=== PATIENT | female | born 1955 | race Caucasian/White ===

== ENCOUNTER 2017-09-25 05:48 | Day surgery (SDC) | payer OTHER ==
[2017-09-25] MEDS ORDERED: Versed 2 MG/2 ML Injection IV ONE (05:49)
[2017-09-25] MEDS ORDERED: DIPRIVAN 200 MG/20 ML IV ONE ×2 (05:49)
[2017-09-25] MEDS ORDERED: Lactated Ringers 1,000 ML IV SCH (06:30)
[2017-09-25] MEDS ORDERED: Xopenex 1.25 MG/0.5 ML UD NEBULE IH STA (06:35)
[2017-09-25] MEDS ORDERED: Sodium Chloride 3 ML UD NEBULES IH ONE ×2 (06:39→06:42)
--- NOTE | 2017-09-25 08:34 | OP ---
SURGERY DATE/TIME: 09/25/2017 0658 PREOPERATIVE DIAGNOSIS: Screening colonoscopy. POSTOPERATIVE DIAGNOSIS: Normal colon. PROCEDURE: Colonoscopy. SURGEON: Garret Lynn M.D. ANESTHESIA: MAC by Oswald Melendrez CRNA. ESTIMATED BLOOD LOSS: None. SPECIMENS: None. DESCRIPTION OF PROCEDURE: After informed written consent was obtained, the patient was taken to the endoscopy suite. She underwent monitored anesthesia and digital rectal exam showed normal sphincter tone and no internal lesions. The scope was inserted into the rectum and sequentially the entire colonic mucosa was traversed. The level of cecum was reached and verified with direct visualization of ileocecal valve. Upon withdrawal careful mucosal inspection revealed no obvious abnormalities. Prep was noted to be fair although there were areas with liquid stool present throughout the entire length of the colon. No obvious mucosal abnormalities were encountered during the exam. Prior to withdrawal retroflexion was performed and showed no internal lesions and no other abnormalities. The scope was removed and the patient was transferred to the recovery room in excellent condition.
[2017-09-25 08:53] VITALS: BP 136/69; PULSE 78; O2SAT 94
== END 2017-09-25 08:45 | disposition home or self-care (01) ==
LOC: SDC 05:48
PROVIDERS: ATTEND Family Medicine
PROC: 0DJD8ZZ Inspection of Lower Intestinal Tract, Via Natural or Artificial Opening Endoscopic (ICD-10-PCS; principal; 2017-09-25)
DX: Z12.11 Encounter for screening for malignant neoplasm of colon (principal); I25.10 Atherosclerotic heart disease of native coronary artery without angina pectoris; E03.9 Hypothyroidism, unspecified
CPT/HCPCS: 00810; 94640; J2250; J2704; A9270-GY

== ENCOUNTER 2023-10-30 14:50 | Inpatient (IN) | payer MEDICARE ==
--- NOTE | 2023-10-30 14:53 | ERPHSYRPT ---
- History of Present Illness Time Seen by Provider: 10/30/23 14:52 Source: patient Exam Limitations: no limitations Physician History: This is a 68-year-old white female patient of nurse practitioner Get who presents to the emergency department from [facility] with worsening shortness of breath over the last 3 to 4 days. She has associated cough that is nonproducti ve. She has wheezing and hoarseness present. Patient denies chest pain. Patient denies abdominal pain. She has no nausea vomiting or diarrhea symptoms. Patient arrived to the emergency department with a room air oxygen saturation level of 85%. Patient was placed on 2 L oxygen via nasal cannula and increased to 97%. Patient is a former smoker of cigarettes quitting approximately 3 years ago. Patient has a history of gastroesophageal reflux disease, hypertension, hypothyroidism, COPD (no O2 use) coronary artery disease. Patient does use nebulizer treatments at home. Timing/Duration: day(s) (3 to 4 days), worse Cough Quality/Degree: mild (To moderate), dry cough (Nonproductive) Possible Cause: occasional episodes Modifying Factors: Improves With: coughing, oxygen (Improved) Associated Symptoms: cough, shortness of breath, wheezing, No fever, No chills, No chest pain/soreness Allergies/Adverse Reactions: propoxyphene napsylate [From Darvocet-N 100] Allergy (Mild, Verified 10/30/23 15:04) Home Medications: Albuterol Sulfate Mdi [ALBUTEROL/Proair Hfa MDI] 2 puff PO BID PRN 10/30/23 [History] Aspirin EC 81 mg [Ecotrin 81 mg] 1 tab PO DAILY 10/30/23 [History] Atorvastatin Calcium [Lipitor 40Mg] 1 tab PO DAILY 10/30/23 [History] Carvedilol 12.5 mg [Coreg 12.5 mg] 1 tab PO BID 10/30/23 [History] Evolocumab [Repatha Sureclick] 140 mg SQ 14 10/30/23 [History] Fluticasone/Vilanterol [Breo Ellipta 100-25 Mcg Inhalr] 1 puff PO DAILY 10/30/23 [History] Gabapentin [Neurontin ] 1 cap PO BID 10/30/23 [History] Levothyroxine Sodium 75 Mcg [Synthroid 75 Mcg] 1 tab PO DAILY 10/30/23 [History] NIFEdipine [Nifedipine ER] 1 tab PO DAILY 10/30/23 [History] Hx Tetanus, Diphtheria Vaccination/Date Given: Yes Hx Influenza Vaccination/Date Given: Yes Hx Pneumococcal Vaccination/Date Given: Yes Travel Risk - International Travel Have you traveled outside of the country in past 3 weeks: No - Coronavirus Screening Are you exhibiting any of the following symptoms?: Yes Symptoms: Cough: New Onset, Shortness of Breath Close contact with a COVID-19 positive Pt in past 14-21 Days: No - Review of Systems Constitutional: No Symptoms Eyes: No Symptoms Ears, Nose, & Throat: No Symptoms Respiratory: Cough, Dyspnea, Wheezing Cardiac: No Symptoms Abdominal/Gastrointestinal: No Symptoms Genitourinary Symptoms: No Symptoms Musculoskeletal: No Symptoms Skin: No Symptoms Neurological: No Symptoms Psychological: No Symptoms Endocrine: No Symptoms Hematologic/Lymphatic: No Symptoms Immunological/Allergic: No Symptoms All Other Systems: Reviewed and Negative - Past Medical History Pertinent Past Medical History: Yes Neurological History: No Pertinent History ENT History: No Pertinent History Cardiac History: Aneurysm, Hypertension, Myocardial Infarction ([place]) Respiratory History: COPD Endocrine Medical History: No Pertinent History Musculoskeletal History: No Pertinent History GI Medical History: GERD, Hemorrhoids History: No Pertinent History Psycho-Social History: No Pertinent History Female Reproductive Disorders: No Pertinent History Other Medical History: [place] X2 - Past Surgical History Past Surgical History: Yes Neuro Surgical History: No Pertinent History Cardiac: Cardiac Catheterization Respiratory: No Pertinent History Gastrointestinal: No Pertinent History Genitourinary: No Pertinent History Musculoskeletal: No Pertinent History Female Surgical History: Hysterectomy Other Surgical History: diagnotic lap x2 - Social History Smoking Status: Former smoker Exposure to second hand smoke: Yes Alcohol Use: None Drug Use: none Patient Lives Alone: No Significant Family History: no pertinent family hx - Nursing Vital Signs Nursing Vital Signs: Initial Vital Signs Temperature 98.7 F 10/30/23 14:51 Pulse Rate 88 10/30/23 14:51 Respiratory Rate 18 10/30/23 14:51 Blood Pressure 150/73 10/30/23 14:51 O2 Sat by Pulse Oximetry 85 L 10/30/23 14:51 Pain Scale Pain Intensity 0 - Physical Exam General Appearance: no apparent distress, alert, anxiety, thin Eye Exam: PERRL/EOMI, eyes nml inspection Ears, Nose, Throat Exam: normal ENT inspection, moist mucous membranes Neck Exam: normal inspection, non-tender, supple, full range of motion Respiratory Exam: respiratory distress, airway intact, crackles/rales (Bilateral bases), wheezing, No chest tenderness Cardiovascular Exam: regular rate/rhythm, normal heart sounds, normal peripheral pulses Gastrointestinal/Abdomen Exam: soft, normal bowel sounds, No tenderness Pelvic Exam: not done Rectal Exam: not done Back Exam: normal inspection, normal range of motion, No CVA tenderness, No vertebral tenderness Extremity Exam: normal inspection, normal range of motion, pelvis stable Neurologic Exam: alert, oriented x 3, cooperative, 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, normal mood/affect, nml cerebellar function, nml station & gait, sensation nml Skin Exam: normal color, warm, dry Lymphatic Exam: adenopathy SpO2 Interpretation: normal O2 Delivery: Room Air - Course Nursing assessment & vital signs reviewed: Yes EKG Interpreted by Me: RATE (77), Sinus Rhythm, NORMAL AXIS, NORMAL INTERVALS, Other (No acute ischemic changes on today's twelve-lead EKG.) Ordered Tests: Active Orders 24 hr Category Date Time Status EKG-ER Only STAT Care 10/30/23 15:39 Active IV Insertion STAT Care 10/30/23 15:39 Active Pulse Oximetry (ED) STAT Care 10/30/23 15:39 Active CHEST 1 VIEW (PORTABLE) Stat Exams 10/30/23 15:39 Completed BLOOD CULTURE Stat Lab 10/30/23 16:00 Received CBC W DIFF Stat Lab 10/30/23 15:10 Completed CMP Stat Lab 10/30/23 15:10 Completed MAGNESIUM Stat Lab 10/30/23 15:10 Completed NT PRO BNPII Stat Lab 10/30/23 15:10 Completed PROTIME WITH INR Stat Lab 10/30/23 16:40 Completed Sodium, Urine Stat Lab 10/30/23 Ordered TROPONIN Q4H Lab 10/30/23 15:10 Completed TROPONIN Q4H Lab 10/30/23 19:45 Ordered TROPONIN Q4H Lab 10/30/23 23:45 Ordered Respiratory Therapy Assessment DAILY RT 10/30/23 15:07 Active Medication Summary Generic Name Dose Route Start Last Admin Trade Name Freq PRN Reason Stop Dose Admin Sodium Chloride 1,000 mls @ 50 mls/hr 10/30/23 15:45 10/30/23 15:54 Sodium Chloride 0.9% 1000 Ml IV 11/29/23 15:44 50 mls/hr .Q20H ROMULO Administration Discontinued Medications Generic Name Dose Route Start Last Admin Trade Name Malena PRN Reason Stop Dose Admin Hydrocodone Bitart/Acetaminophen 10 ml 10/30/23 16:43 10/30/23 16:47 Hydrocodone/Acetaminophen 5 Ml Udcup PO 10/30/23 16:44 10 ml STAT STA Administration Hydrocodone Bitart/Acetaminophen Confirm 10/30/23 16:46 Hydrocodone/Acetaminophen 5 Ml Udcup Administered 10/30/23 16:47 Dose 10 ml .ROUTE .STK-MED ONE Albuterol/Ipratropium 3 ml 10/30/23 15:04 10/30/23 15:04 Ipratropium/Albuterol Sulfate 3 Ml Ampul.Neb IH 10/30/23 15:05 3 ml STAT ONE Administration Albuterol/Ipratropium Confirm 10/30/23 15:02 Ipratropium/Albuterol Sulfate 3 Ml Ampul.Neb Administered 10/30/23 15:03 Dose 3 ml IH .STK-MED ONE Methylprednisolone Sodium 0 mg 10/30/23 15:39 10/30/23 15:54 Succinate 125 mg/ Sterile IV 10/30/23 15:40 125 mg Water 2 ml STAT ONE Administration Methylprednisolone Sodium Succinate Confirm 10/30/23 15:50 Methylprednis Sod Succ 125 Mg/2 Ml Vial Administered 10/30/23 15:51 Dose 125 mg .ROUTE .STK-MED ONE Sterile Water Confirm 10/30/23 15:50 Water For Injection,Sterile 10 Ml Vial Administered 10/30/23 15:51 Dose 10 ml IJ .STK-MED ONE Lab/Rad Data: Laboratory Result Diagrams 10/30/23 15:10 10/30/23 15:10 Laboratory Results 10/30/23 10/30/23 10/30/23 Range/Units 16:40 16:05 15:10 WBC (4.0-10.5) x10^3/uL RBC (4.1-5.4) x10^6/uL Hgb (12.0-16.0) g/dL Hct (35-47) % MCV (78-100) fL MCH (26-32) pg MCHC (32-36) g/dL RDW (11.5-14.0) % Plt Count (150-450) x10^3/uL MPV (7.5-11.0) fL Gran % (36.0-66.0) % Immature Gran % (Auto) (0.00-0.4) % Nucleat RBC Rel Count (0.00-0.1) % Eos # (Auto) (0-0.5) x10^3/uL Immature Gran # (Auto) (0.00-0.03) x10^3u/L Absolute Lymphs (auto) (1.0-4.6) x10^3/uL Absolute Monos (auto) (0.0-1.3) x10^3/uL Absolute Nucleated RBC (0.00-0.01) x10^3u/L Lymphocytes % (24.0-44.0) % Monocytes % (0.0-12.0) % Eosinophils % (0.00-5.0) % Basophils % (0.0-0.4) % Absolute Granulocytes (1.4-6.9) x10^3/uL Basophils # (0-0.4) x10^3/uL PT 10.5 (9.4-12.5) SECONDS INR 0.96 (0.8-3.0) Sodium (137-145) mmol/L Potassium (3.5-5.1) mmol/L Chloride (98-107) mmol/L Carbon Dioxide (22-30) mmol/L Anion Gap (5-15) MEQ/L BUN (7-17) mg/dL Creatinine (0.52-1.04) mg/dL Estimated GFR ML/MIN Glucose (74-106) mg/dL Calcium (8.4-10.2) mg/dL Magnesium (1.6-2.3) mg/dL Total Bilirubin (0.2-1.3) mg/dL AST (14-36) U/L ALT (0-35) U/L Alkaline Phosphatase (38-126) U/L Troponin I 0.012 (0.000-0.034) ng/mL NT-Pro-B Natriuret Pep (<300) pg/mL Serum Total Protein (6.3-8.2) g/dL Albumin (3.5-5.0) g/dL Influenza Type A Ag POSITIVE (NEGATIVE) Influenza Type B Ag NEGATIVE (NEGATIVE) RSV (PCR) NEGATIVE (NEGATIVE) SARS-CoV-2 (PCR) NEGATIVE (NEGATIVE) 10/30/23 10/30/23 Range/Units 15:10 15:10 WBC 5.4 (4.0-10.5) x10^3/uL RBC 4.42 (4.1-5.4) x10^6/uL Hgb 13.3 (12.0-16.0) g/dL Hct 37.6 (35-47) % MCV 85.1 (78-100) fL MCH 30.1 (26-32) pg MCHC 35.4 (32-36) g/dL RDW 12.9 (11.5-14.0) % Plt Count 209 (150-450) x10^3/uL MPV 10.7 (7.5-11.0) fL Gran % 74.2 H (36.0-66.0) % Immature Gran % (Auto) 0.2 (0.00-0.4) % Nucleat RBC Rel Count 0.0 (0.00-0.1) % Eos # (Auto) 0 (0-0.5) x10^3/uL Immature Gran # (Auto) 0.01 (0.00-0.03) x10^3u/L Absolute Lymphs (auto) 0.82 L (1.0-4.6) x10^3/uL Absolute Monos (auto) 0.54 (0.0-1.3) x10^3/uL Absolute Nucleated RBC 0.00 (0.00-0.01) x10^3u/L Lymphocytes % 15.2 L (24.0-44.0) % Monocytes % 10.0 (0.0-12.0) % Eosinophils % 0.0 (0.00-5.0) % Basophils % 0.4 (0.0-0.4) % Absolute Granulocytes 4.01 (1.4-6.9) x10^3/uL Basophils # 0.02 (0-0.4) x10^3/uL PT (9.4-12.5) SECONDS INR (0.8-3.0) Sodium 118 L* (137-145) mmol/L Potassium 3.8 (3.5-5.1) mmol/L Chloride 83 L (98-107) mmol/L Carbon Dioxide 24 (22-30) mmol/L Anion Gap 15.0 (5-15) MEQ/L BUN 8 (7-17) mg/dL Creatinine 0.33 L (0.52-1.04) mg/dL Estimated GFR 111.5 ML/MIN Glucose 108 H (74-106) mg/dL Calcium 8.5 (8.4-10.2) mg/dL Magnesium 2.0 (1.6-2.3) mg/dL Total Bilirubin 0.80 (0.2-1.3) mg/dL AST 52 H (14-36) U/L ALT 20 (0-35) U/L Alkaline Phosphatase 65 (38-126) U/L Troponin I (0.000-0.034) ng/mL NT-Pro-B Natriuret Pep 571 (<300) pg/mL Serum Total Protein 7.3 (6.3-8.2) g/dL Albumin 4.2 (3.5-5.0) g/dL Influenza Type A Ag (NEGATIVE) Influenza Type B Ag (NEGATIVE) RSV (PCR) (NEGATIVE) SARS-CoV-2 (PCR) (NEGATIVE) - Progress Progress: improved, re-examined Air Movement: fair Progress Note: 10/30/23 15:49 This patient's medical issue is 1 of moderate to high complexity. Level complex in the workup performed is based on review of the patient's past medical history, review the patient's medication list, review of patient's drug allergy list, history present illness and physical findings on examination. The workup in this patient includes placement of an intravenous line, twelve-lead EKG, respiratory therapy consultation with nebulizer treatment with DuoNeb, troponin level, BNP, chest x-ray, CBC, CMP, viral swabs, mono test. We will also provide the patient with Solu-Medrol 125 mg intravenously. 10/30/23 17:22 I reviewed and interpreted the patient's workup results. Patient has hyponatremia. She also is positive for influenza A infection. Chest x-ray shows continued nonacute hyperinflated chest with chronic features. 10/30/23 18:21 I reviewed the patient history, presenting complaint, workup performed and the results of the radiographic and laboratory studies with Dr. Marshall, the telehospitalist on-call. She accepts the patient for admission. Blood Culture(s) Obtained: Yes Counseled pt/family regarding: lab results, diagnosis, rad results Medical Desision Making - Independent Historian Additional History obtained from: Family - Discussion of managment Care discussed with:: hospitalist Reviewed:: Test results, Need for additional workup - Diagnostic Testing Diagnostic test were ordered, analyzed, and reviewed by me: Yes Radiological Interpretation: Reviewed by me, Teleradiologist Report - Risk of complications The pt has a high risk of morbidity or mortality based on: Decision regarding hospitilization or escalation of hosp level of care - Departure Departure Disposition: In-patient Admission Clinical Impression: Hyponatremia, Influenza A H1N1 infection, Hypoxia, Weakness Condition: Fair Critical Care Time: No Referrals: NEL COWART, PRINTED CIRCUIT DESIGNER [Primary Care Provider] - Follow up/PCP as directed
[2023-10-30] MEDS ORDERED: DUONEB 0.5-3 MG/3 ml Neb IH ONE ×3 (15:02→21:32)
[2023-10-30] MEDS ORDERED: solu-MEDROL 125 MG, Sterile H2O 10 ml 2 ML IV ONE ×2 (15:39)
[2023-10-30] MEDS ORDERED: Sodium Chloride 0.9% 1000 ML 1,000 ML IV SCH (15:45)
[2023-10-30] MEDS ORDERED: Sodium Chloride 0.9% 1000 ML 1,000 ML ONE (15:50)
[2023-10-30] MEDS ORDERED: solu-MEDROL ONE ×2 (15:50→22:12)
[2023-10-30] MEDS ORDERED: Sterile H2O 10 ml IJ ONE (15:50)
--- NOTE | 2023-10-30 15:55 | XRAY ---
Indication: Cough and short of breath. Comparison: May 17, 2022. Portable apical lordotic chest again hyperinflated and clear again with a few incidental tiny calcified granulomas. Heart not enlarged again with CABG. Bony thorax intact again with osteopenia. Impression: Continued nonacute hyperinflated chest with chronic features.
[2023-10-30 16:21] LABS: Absolute Neutrophil Ct (ANC) 4.01 x10^3/uL (1.4-6.9); BASOPHIL % 0.4 % (0.0-0.4); Basophil (Absolute #) 0.02 x10^3/uL (0-0.4); Eosinophil (Absolute #) 0 x10^3/uL (0-0.5); Hematocrit 37.6 % (35-47); Hemoglobin 13.3 g/dL (12.0-16.0); IMMATURE GRAN # 0.01 x10^3u/L (0.00-0.03); IMMATURE GRAN % 0.2 % (0.00-0.4); Lymphocyte (Absolute #) 0.82 x10^3/uL (1.0-4.6); Lymphocytes % 15.2 % (24.0-44.0); Mean Cell Volume 85.1 fL (78-100); Mean Corpuscular Hemoglobin 30.1 pg (26-32); Mean Corpuscular Hgb Concent. 35.4 g/dL (32-36); Mean Platelet Volume 10.7 fL (7.5-11.0); Monocyte (Absolute #) 0.54 x10^3/uL (0.0-1.3); Neutrophil % 74.2 % (36.0-66.0); Platelet Count 209 x10^3/uL (150-450); Red Blood Count 4.42 x10^6/uL (4.1-5.4); Red Cell Distribution Width 12.9 % (11.5-14.0); White Blood Count 5.4 x10^3/uL (4.0-10.5)
[2023-10-30] MEDS ORDERED: HYDROCODONE-ACETAMIN 2.5-108/5 ML SOLUTION PO STA (16:43)
[2023-10-30] MEDS ORDERED: HYDROCODONE-ACETAMIN 2.5-108/5 ML SOLUTION ONE (16:46)
[2023-10-30 16:50] LABS: ALBUMIN 4.2 g/dL (3.5-5.0); BILIRUBIN,TOTAL 0.8 mg/dL (0.2-1.3); Calcium 8.5 mg/dL (8.4-10.2); Creatinine 1 0.33 mg/dL (0.52-1.04); EST GLOMERULAR FILTRATION RATE 111.5 ML/MIN; Potassium 3.8 mmol/L (3.5-5.1); Total Protein 7.3 g/dL (6.3-8.2)
[2023-10-30 17:14] LABS: INFLUENZA B NEGATIVE (NEGATIVE); RESPIRATORY SYNCTIAL VIRUS NEGATIVE (NEGATIVE); SARS-CoV-2 Xpert Express NEGATIVE (NEGATIVE)
[2023-10-30 17:19] LABS: INFLUENZA A POSITIVE (NEGATIVE)
[2023-10-30 17:20] LABS: INR 0.96 (0.8-3.0); PROTIME 10.5 SECONDS (9.4-12.5)
[2023-10-30] MEDS ORDERED: Zofran 4 MG/2 ML VIAL IV PRN (19:25)
[2023-10-30] MEDS ORDERED: TYLENOL 325 MG PO PRN (19:25)
[2023-10-30 20:00] LABS: POTASSIUM, URINE RANDOM 12.5 mmol/L (0.1-0.7)
--- NOTE | 2023-10-30 20:58 | PCM.HP ---
History of Present Illness - Chief Complaint Chief Complaint: hyponatremia, influenza A, hypoxia, weakness Date: 10/30/23 History of Present Illness: Ms. Yanes is a 68 year old female with a past medical history significant for hypertension, hyperlipidemia, and hypothyroidism who presents to the ER with complaints of vague shortness of breath associated with non productive cough over the past 3-4 days. Upon arrival, she was found to be positive for influenza and initial labs were notable for a sodium of 118. She was started on NS IVFs, given Solumedrol and admitted for further work up. She is currently resting in bed, awake/alert. Some nausea earlier but no vomiting or diarrhea. No dysuria, hematuria or foamy urine. - Review of Systems Eyes: No Symptoms Ears, Nose, & Throat: No Symptoms Respiratory: Cough, No Short Of Breath Cardiac: No Chest Pain Abdominal/Gastrointestinal: Nausea, No Vomiting, No Diarrhea Genitourinary Symptoms: No Dysuria, No Frequency, No Hematuria Musculoskeletal: No Symptoms Skin: No Symptoms Neurological: No Symptoms Psychological: No Symptoms Endocrine: No Symptoms Hematologic/Lymphatic: No Symptoms Medications & Allergies Home Medications: Home Medication List Albuterol Sulfate Mdi [ALBUTEROL/Proair Hfa MDI] 2 puff PO BID PRN 10/30/23 [History Confirmed 10/30/23] Aspirin EC 81 mg [Ecotrin 81 mg] 1 tab PO DAILY 10/30/23 [History Confirmed 10/30/23] Atorvastatin Calcium [Lipitor 40Mg] 1 tab PO DAILY 10/30/23 [History Confirmed 10/30/23] Carvedilol 12.5 mg [Coreg 12.5 mg] 12.5 mg PO BID 10/30/23 [History Confirmed 10/30/23] Evolocumab [Repatha Sureclick] 140 mg SQ 14 10/30/23 [History Confirmed 10/30/23] Fluticasone/Vilanterol [Breo Ellipta 100-25 Mcg Inhalr] 1 puff PO DAILY 10/30/23 [History Confirmed 10/30/23] Gabapentin [Neurontin ] 1 cap PO BID 10/30/23 [History Confirmed 10/30/23] Levothyroxine Sodium 75 Mcg [Synthroid 75 Mcg] 1 tab PO DAILY 10/30/23 [History Confirmed 10/30/23] NIFEdipine [Nifedipine ER] 1 tab PO DAILY 10/30/23 [History Confirmed 10/30/23] Allergies/Adverse Reactions: Allergies Allergy/AdvReac Type Severity Reaction Status Date / Time propoxyphene napsylate Allergy Mild Verified 10/30/23 15:04 [From Darvocet-N 100] - Past Medical History Past Medical History: Yes Neurological History: No Pertinent History ENT History: No Pertinent History Cardiac History: Aneurysm, Hypertension, Myocardial Infarction ([place]) Respiratory History: COPD Endocrine Medical History: No Pertinent History Musculoskelatal History: No Pertinent History GI Medical History: GERD, Hemorrhoids History: No Pertinent History Pyscho-Social History: No Pertinent History Reproductive Disorders: No Pertinent History Comment: [place] X2 - Female History Are you now?: No - Past Surgical History Past Surgical History: Yes Neuro Surgical History: No Pertinent History Cardiac History: CABG, Cardiac Catheterization Respiratory Surgery: No Pertinent History GI Surgical History: No Pertinent History Genitourinary Surgical Hx: No Pertinent History Musculskeletal Surgical Hx: No Pertinent History Female Surgical History: Hysterectomy Other Surgical History: diagnostic lap x2 - Social History Smoking Status: Former smoker Exposure to second hand smoke: Yes Alcohol: None Drug Use: none Significant Family History: no pertinent family hx - Physical Exam Vital Signs: Vital Signs - 24 hr Temp Pulse Resp BP BP Pulse Ox 10/30/23 19:26 98.2 F 72 18 183/72 92 L 10/30/23 18:30 71 17 175/79 10/30/23 18:00 68 20 154/81 95 10/30/23 17:30 75 16 151/80 95 10/30/23 17:00 77 19 159/91 93 L 10/30/23 16:30 76 19 144/62 94 L 10/30/23 16:00 80 18 127/64 95 10/30/23 15:47 95 10/30/23 15:31 79 19 127/64 95 10/30/23 15:07 80 20 97 10/30/23 15:00 79 16 150/73 96 10/30/23 14:51 98.7 F 88 18 150/73 85 L General Appearance: no apparent distress Neurologic Exam: alert, oriented x 3 Ears, Nose, Throat Exam: dry mucous membranes Neck Exam: supple Respiratory Exam: No respiratory distress Cardiovascular Exam: regular rate/rhythm Gastrointestinal/Abdomen Exam: soft Extremity Exam: No pedal edema, No swelling, No tenderness Skin Exam: normal color, No rash Results - Labs Lab/Micro Results: Lab Results-Last 24 Hours 10/30/23 10/30/23 10/30/23 Range/Units 15:10 15:10 15:10 WBC 5.4 (4.0-10.5) x10^3/uL RBC 4.42 (4.1-5.4) x10^6/uL Hgb 13.3 (12.0-16.0) g/dL Hct 37.6 (35-47) % MCV 85.1 (78-100) fL MCH 30.1 (26-32) pg MCHC 35.4 (32-36) g/dL RDW 12.9 (11.5-14.0) % Plt Count 209 (150-450) x10^3/uL MPV 10.7 (7.5-11.0) fL Gran % 74.2 H (36.0-66.0) % Immature Gran % (Auto) 0.2 (0.00-0.4) % Nucleat RBC Rel Count 0.0 (0.00-0.1) % Eos # (Auto) 0 (0-0.5) x10^3/uL Immature Gran # (Auto) 0.01 (0.00-0.03) x10^3u/L Absolute Lymphs (auto) 0.82 L (1.0-4.6) x10^3/uL Absolute Monos (auto) 0.54 (0.0-1.3) x10^3/uL Absolute Nucleated RBC 0.00 (0.00-0.01) x10^3u/L Lymphocytes % 15.2 L (24.0-44.0) % Monocytes % 10.0 (0.0-12.0) % Eosinophils % 0.0 (0.00-5.0) % Basophils % 0.4 (0.0-0.4) % Absolute Granulocytes 4.01 (1.4-6.9) x10^3/uL Basophils # 0.02 (0-0.4) x10^3/uL PT (9.4-12.5) SECONDS INR (0.8-3.0) Sodium 118 L* (137-145) mmol/L Potassium 3.8 (3.5-5.1) mmol/L Chloride 83 L (98-107) mmol/L Carbon Dioxide 24 (22-30) mmol/L Anion Gap 15.0 (5-15) MEQ/L BUN 8 (7-17) mg/dL Creatinine 0.33 L (0.52-1.04) mg/dL Estimated GFR 111.5 ML/MIN Glucose 108 H (74-106) mg/dL Calcium 8.5 (8.4-10.2) mg/dL Magnesium 2.0 (1.6-2.3) mg/dL Total Bilirubin 0.80 (0.2-1.3) mg/dL AST 52 H (14-36) U/L ALT 20 (0-35) U/L Alkaline Phosphatase 65 (38-126) U/L Troponin I 0.012 (0.000-0.034) ng/mL NT-Pro-B Natriuret Pep 571 (<300) pg/mL Serum Total Protein 7.3 (6.3-8.2) g/dL Albumin 4.2 (3.5-5.0) g/dL Urine Sodium (30-90) mmol/L Urine Potassium (0.1-0.7) mmol/L Influenza Type A Ag (NEGATIVE) Influenza Type B Ag (NEGATIVE) RSV (PCR) (NEGATIVE) SARS-CoV-2 (PCR) (NEGATIVE) 10/30/23 10/30/23 10/30/23 Range/Units 16:05 16:40 19:09 WBC (4.0-10.5) x10^3/uL RBC (4.1-5.4) x10^6/uL Hgb (12.0-16.0) g/dL Hct (35-47) % MCV (78-100) fL MCH (26-32) pg MCHC (32-36) g/dL RDW (11.5-14.0) % Plt Count (150-450) x10^3/uL MPV (7.5-11.0) fL Gran % (36.0-66.0) % Immature Gran % (Auto) (0.00-0.4) % Nucleat RBC Rel Count (0.00-0.1) % Eos # (Auto) (0-0.5) x10^3/uL Immature Gran # (Auto) (0.00-0.03) x10^3u/L Absolute Lymphs (auto) (1.0-4.6) x10^3/uL Absolute Monos (auto) (0.0-1.3) x10^3/uL Absolute Nucleated RBC (0.00-0.01) x10^3u/L Lymphocytes % (24.0-44.0) % Monocytes % (0.0-12.0) % Eosinophils % (0.00-5.0) % Basophils % (0.0-0.4) % Absolute Granulocytes (1.4-6.9) x10^3/uL Basophils # (0-0.4) x10^3/uL PT 10.5 (9.4-12.5) SECONDS INR 0.96 (0.8-3.0) Sodium (137-145) mmol/L Potassium (3.5-5.1) mmol/L Chloride (98-107) mmol/L Carbon Dioxide (22-30) mmol/L Anion Gap (5-15) MEQ/L BUN (7-17) mg/dL Creatinine (0.52-1.04) mg/dL Estimated GFR ML/MIN Glucose (74-106) mg/dL Calcium (8.4-10.2) mg/dL Magnesium (1.6-2.3) mg/dL Total Bilirubin (0.2-1.3) mg/dL AST (14-36) U/L ALT (0-35) U/L Alkaline Phosphatase (38-126) U/L Troponin I (0.000-0.034) ng/mL NT-Pro-B Natriuret Pep (<300) pg/mL Serum Total Protein (6.3-8.2) g/dL Albumin (3.5-5.0) g/dL Urine Sodium 8 L (30-90) mmol/L Urine Potassium 12.5 H (0.1-0.7) mmol/L Influenza Type A Ag POSITIVE (NEGATIVE) Influenza Type B Ag NEGATIVE (NEGATIVE) RSV (PCR) NEGATIVE (NEGATIVE) SARS-CoV-2 (PCR) NEGATIVE (NEGATIVE) - Radiology Impressions Radiology Exams & Impressions: Radiology Procedures Category Date Time Status CHEST 1 VIEW (PORTABLE) Stat Exams 10/30/23 15:39 Completed - Other Procedures and Tests Respiratory Therapy 10/30/23 15:07 Respiratory Therapy Assessment DAILY 10/30/23 19:25 EKG REPEAT IN AM Oxygen Nasal Cannula 2 lpm Respiratory Therapy Consult ONCE Assessment/Plan (1) Hyponatremia Current Visit: Yes Status: Acute Assessment & Plan: Likely from hypovolemia and free water excess with appropriately low urine sodium - need to aim for correction rate of 4-8 meq/24hr to avoid CPM 1. NS IVFs 2. Limit free water 3. Will check TSH to rule out overt hypothyroidism 4. Defer thiazide diuretics 5. Watch electrolytes closely - no need for hypertonic saline or tolvaptan yet Code(s): E87.1 - HYPO-OSMOLALITY AND HYPONATREMIA (2) Hypoxia Current Visit: Yes Status: Acute Assessment & Plan: Likely from influenza 1. Status post solumedrol 2. Continue duonebs 3. Supplemental oxygen 4. Monitor O2 sats Code(s): R09.02 - HYPOXEMIA (3) Influenza A H1N1 infection Current Visit: Yes Status: Acute Assessment & Plan: Influenza positive 1. Encourage PO intake 2. Steroids 3. Tamiflu 4. Monitor respiratory status Code(s): J10.1 - FLU DUE TO OTH IDENT INFLUENZA VIRUS W OTH RESP MANIFEST Telemedicine Encounter - Telemedicine Encounter Telemedicine Encounter: The entirety of this encounter was performed via Telemedicine"
[2023-10-30] MEDS: DUONEB 0.5-3 MG/3 ml Neb IH SCH (21:30)
[2023-10-30] MEDS: COREG 12.5 MG PO SCH (22:19)
[2023-10-30] MEDS: NEURONTIN PO SCH (22:19)
[2023-10-30] MEDS: solu-MEDROL 40 MG, Sterile H2O 10 ml 1 ML IV SCH ×2 (22:19)
[2023-10-31] MEDS ORDERED: DUONEB 0.5-3 MG/3 ml Neb IH SCH (01:00)
[2023-10-31 03:33] LABS: Absolute Neutrophil Ct (ANC) 1.37 x10^3/uL (1.4-6.9); Basophil (Absolute #) 0 x10^3/uL (0-0.4); Eosinophil (Absolute #) 0 x10^3/uL (0-0.5); Hematocrit 34.2 % (35-47); Hemoglobin 11.6 g/dL (12.0-16.0); Lymphocyte (Absolute #) 0.58 x10^3/uL (1.0-4.6); Lymphocytes % 28.2 % (24.0-44.0); Mean Cell Volume 85.5 fL (78-100); Mean Corpuscular Hgb Concent. 33.9 g/dL (32-36); Mean Platelet Volume 9.9 fL (7.5-11.0); Monocyte (Absolute #) 0.11 x10^3/uL (0.0-1.3); Monocytes % 5.3 % (0.0-12.0); Neutrophil % 66.5 % (36.0-66.0); Platelet Count 172 x10^3/uL (150-450); Red Cell Distribution Width 13.1 % (11.5-14.0); White Blood Count 2.1 x10^3/uL (4.0-10.5)
[2023-10-31 03:57] LABS: ALBUMIN 3.4 g/dL (3.5-5.0); ANION GAP 8.4 MEQ/L (5-15); BILIRUBIN,TOTAL 0.4 mg/dL (0.2-1.3); Calcium 8.5 mg/dL (8.4-10.2); Creatinine 1 0.33 mg/dL (0.52-1.04); EST GLOMERULAR FILTRATION RATE 111.5 ML/MIN; Potassium 3.4 mmol/L (3.5-5.1)
[2023-10-31] MEDS ORDERED: Advair Hfa 115/21 Common canister IH SCH (07:00)
[2023-10-31] MEDS: DUONEB 0.5-3 MG/3 ml Neb IH SCH ×4 (07:06→19:57)
[2023-10-31] MEDS ORDERED: Klor Con PO ONE (07:43)
[2023-10-31] MEDS: SYNTHROID 75 MCG PO SCH (07:52)
[2023-10-31] MEDS: NEURONTIN PO SCH ×3 (09:06→21:36)
[2023-10-31] MEDS: COREG 12.5 MG PO SCH ×2 (09:08→21:36)
[2023-10-31] MEDS: solu-MEDROL 40 MG, Sterile H2O 10 ml 1 ML IV SCH ×4 (09:09→21:35)
[2023-10-31] MEDS: Sodium Chloride 0.9% 1000 ML 1,000 ML IV SCH ×2 (09:13→17:00)
[2023-10-31] MEDS ORDERED: HALLS COUGH DROPS 5.4 MG MM PRN (09:31)
--- NOTE | 2023-10-31 09:37 | PCM.NOTE ---
Date and Time: 10/31/23929 Subjective Assessment: Ms. Yanes is a 68 year old female with a past medical history significant for hypertension, hyperlipidemia, and hypothyroidism. She presented to the ER last night with complaints of vague shortness of breath associated with non productive cough over the past 3-4 days. Upon arrival, she was found to be pos itive for influenza and initial labs were notable for a sodium of 118. She was started on NS IVFs, given Solumedrol and admitted for further work up. She was found to be positive for flu A and hypoxic requiring 2LNC to keep O2 92 %. She was started on tamiflu. She does not wear home O2. Hyponatremia has slowly improved per labs this AM. She is coughing up thick yellow sputum today, will add Mucinex. Chest XR does not show pneumonia and she does not have an elevated WBC. Will continue steroids and duonebs. K+ low this am and replaced. She deneis CP, SOB, Abd. pain, N/V/D. <CHAR SCHMID - Last Filed: 10/31/23 11:59> Date and Time: 10/31/232041 <JUAN JUAREZ - Last Filed: 10/31/23 20:44> - Review of Systems Constitutional: No Fever, No Chills Eyes: No Symptoms Ears, Nose, & Throat: No Symptoms Respiratory: Cough, Short Of Breath, Wheezing Cardiac: No Chest Pain, No Edema, No Syncope Abdominal/Gastrointestinal: No Abdominal Pain, No Nausea, No Vomiting, No Diarrhea Genitourinary Symptoms: No Dysuria Musculoskeletal: No Back Pain, No Neck Pain Skin: No Rash Neurological: No Dizziness, No Focal Weakness, No Sensory Changes Psychological: No Symptoms Endocrine: No Symptoms Hematologic/Lymphatic: No Symptoms Immunological/Allergic: No Symptoms <CHAR SCHMID - Last Filed: 10/31/23 11:59> Objective Exam General Appearance: no apparent distress, alert Neurologic Exam: alert, oriented x 3, cooperative, normal mood/affect, nml cerebellar function, sensation nml, No motor deficits Skin Exam: normal color, warm, dry Eye Exam: PERRL, EOMI, eyes nml inspection Ears, Nose, Throat Exam: normal ENT inspection, pharynx normal, moist mucous membranes Neck Exam: normal inspection, non-tender, supple, full range of motion Respiratory Exam: wheezing, No respiratory distress Cardiovascular Exam: regular rate/rhythm, normal heart sounds Gastrointestinal/Abdomen Exam: soft, No tenderness, No mass Extremity Exam: normal inspection, normal range of motion Back Exam: normal inspection, normal range of motion, No CVA tenderness, No vert ebral tenderness Pelvic Exam: deferred Rectal Exam: deferred <CHAR SCHMID - Last Filed: 10/31/23 11:59> OBJECTIVE DATA Vital Signs: Vital Signs - 24 hr Temp Pulse Resp BP BP Pulse Ox 10/31/23 08:00 18 10/31/23 07:15 76 22 92 L 10/31/23 07:10 98.0 F 74 20 113/58 92 L 10/31/23 04:00 97.9 F 58 L 18 144/83 92 L 10/30/23 23:57 16 10/30/23 23:51 98.3 F 69 22 139/60 93 L 10/30/23 21:30 76 18 92 L 10/30/23 19:26 98.2 F 72 18 183/72 92 L 10/30/23 18:30 71 17 175/79 10/30/23 18:00 68 20 154/81 95 10/30/23 17:30 75 16 151/80 95 10/30/23 17:00 77 19 159/91 93 L 10/30/23 16:30 76 19 144/62 94 L 10/30/23 16:00 80 18 127/64 95 10/30/23 15:47 95 10/30/23 15:31 79 19 127/64 95 10/30/23 15:07 80 20 97 10/30/23 15:00 79 16 150/73 96 10/30/23 14:51 98.7 F 88 18 150/73 85 L Pain Assessment - Last Documented Pain Intensity 0 Intake and Output: Intake & Output 10/28/23 10/29/23 10/30/23 10/31/23 11:59 11:59 11:59 11:59 Intake Total 360 Output Total 451 Balance -91 Weight 59 kg Lab Results: Lab Results-Last 24 Hours 10/30/23 10/30/23 10/30/23 Range/Units 03:30 15:10 15:10 WBC 5.4 (4.0-10.5) x10^3/uL RBC 4.42 (4.1-5.4) x10^6/uL Hgb 13.3 (12.0-16.0) g/dL Hct 37.6 (35-47) % MCV 85.1 (78-100) fL MCH 30.1 (26-32) pg MCHC 35.4 (32-36) g/dL RDW 12.9 (11.5-14.0) % Plt Count 209 (150-450) x10^3/uL MPV 10.7 (7.5-11.0) fL Gran % 74.2 H (36.0-66.0) % Immature Gran % (Auto) 0.2 (0.00-0.4) % Nucleat RBC Rel Count 0.0 (0.00-0.1) % Eos # (Auto) 0 (0-0.5) x10^3/uL Immature Gran # (Auto) 0.01 (0.00-0.03) x10^3u/L Absolute Lymphs (auto) 0.82 L (1.0-4.6) x10^3/uL Absolute Monos (auto) 0.54 (0.0-1.3) x10^3/uL Absolute Nucleated RBC 0.00 (0.00-0.01) x10^3u/L Lymphocytes % 15.2 L (24.0-44.0) % Monocytes % 10.0 (0.0-12.0) % Eosinophils % 0.0 (0.00-5.0) % Basophils % 0.4 (0.0-0.4) % Absolute Granulocytes 4.01 (1.4-6.9) x10^3/uL Basophils # 0.02 (0-0.4) x10^3/uL PT (9.4-12.5) SECONDS INR (0.8-3.0) Sodium 118 L* (137-145) mmol/L Potassium 3.8 (3.5-5.1) mmol/L Chloride 83 L (98-107) mmol/L Carbon Dioxide 24 (22-30) mmol/L Anion Gap 15.0 (5-15) MEQ/L BUN 8 (7-17) mg/dL Creatinine 0.33 L (0.52-1.04) mg/dL Estimated GFR 111.5 ML/MIN Glucose 108 H (74-106) mg/dL Calcium 8.5 (8.4-10.2) mg/dL Magnesium 2.0 (1.6-2.3) mg/dL Total Bilirubin 0.80 (0.2-1.3) mg/dL AST 52 H (14-36) U/L ALT 20 (0-35) U/L Alkaline Phosphatase 65 (38-126) U/L Troponin I < 0.012 (0.000-0.034) ng/mL NT-Pro-B Natriuret Pep 571 (<300) pg/mL Serum Total Protein 7.3 (6.3-8.2) g/dL Albumin 4.2 (3.5-5.0) g/dL Thyroxine (T4) (5.53-10.96) ug/dL TSH 3rd Generation (0.47-4.68) mIU/L Urine Sodium (30-90) mmol/L Urine Potassium (0.1-0.7) mmol/L Influenza Type A Ag (NEGATIVE) Influenza Type B Ag (NEGATIVE) RSV (PCR) (NEGATIVE) SARS-CoV-2 (PCR) (NEGATIVE) 10/30/23 10/30/23 10/30/23 Range/Units 15:10 16:05 16:40 WBC (4.0-10.5) x10^3/uL RBC (4.1-5.4) x10^6/uL Hgb (12.0-16.0) g/dL Hct (35-47) % MCV (78-100) fL MCH (26-32) pg MCHC (32-36) g/dL RDW (11.5-14.0) % Plt Count (150-450) x10^3/uL MPV (7.5-11.0) fL Gran % (36.0-66.0) % Immature Gran % (Auto) (0.00-0.4) % Nucleat RBC Rel Count (0.00-0.1) % Eos # (Auto) (0-0.5) x10^3/uL Immature Gran # (Auto) (0.00-0.03) x10^3u/L Absolute Lymphs (auto) (1.0-4.6) x10^3/uL Absolute Monos (auto) (0.0-1.3) x10^3/uL Absolute Nucleated RBC (0.00-0.01) x10^3u/L Lymphocytes % (24.0-44.0) % Monocytes % (0.0-12.0) % Eosinophils % (0.00-5.0) % Basophils % (0.0-0.4) % Absolute Granulocytes (1.4-6.9) x10^3/uL Basophils # (0-0.4) x10^3/uL PT 10.5 (9.4-12.5) SECONDS INR 0.96 (0.8-3.0) Sodium (137-145) mmol/L Potassium (3.5-5.1) mmol/L Chloride (98-107) mmol/L Carbon Dioxide (22-30) mmol/L Anion Gap (5-15) MEQ/L BUN (7-17) mg/dL Creatinine (0.52-1.04) mg/dL Estimated GFR ML/MIN Glucose (74-106) mg/dL Calcium (8.4-10.2) mg/dL Magnesium (1.6-2.3) mg/dL Total Bilirubin (0.2-1.3) mg/dL AST (14-36) U/L ALT (0-35) U/L Alkaline Phosphatase (38-126) U/L Troponin I 0.012 (0.000-0.034) ng/mL NT-Pro-B Natriuret Pep (<300) pg/mL Serum Total Protein (6.3-8.2) g/dL Albumin (3.5-5.0) g/dL Thyroxine (T4) (5.53-10.96) ug/dL TSH 3rd Generation (0.47-4.68) mIU/L Urine Sodium (30-90) mmol/L Urine Potassium (0.1-0.7) mmol/L Influenza Type A Ag POSITIVE (NEGATIVE) Influenza Type B Ag NEGATIVE (NEGATIVE) RSV (PCR) NEGATIVE (NEGATIVE) SARS-CoV-2 (PCR) NEGATIVE (NEGATIVE) 10/30/23 10/30/23 10/31/23 Range/Units 19:09 19:50 03:30 WBC 2.1 L (4.0-10.5) x10^3/uL RBC 4.00 L (4.1-5.4) x10^6/uL Hgb 11.6 L (12.0-16.0) g/dL Hct 34.2 L (35-47) % MCV 85.5 (78-100) fL MCH 29.0 (26-32) pg MCHC 33.9 (32-36) g/dL RDW 13.1 (11.5-14.0) % Plt Count 172 (150-450) x10^3/uL MPV 9.9 (7.5-11.0) fL Gran % 66.5 H (36.0-66.0) % Immature Gran % (Auto) 0.0 (0.00-0.4) % Nucleat RBC Rel Count 0.0 (0.00-0.1) % Eos # (Auto) 0 (0-0.5) x10^3/uL Immature Gran # (Auto) 0.00 (0.00-0.03) x10^3u/L Absolute Lymphs (auto) 0.58 L (1.0-4.6) x10^3/uL Absolute Monos (auto) 0.11 (0.0-1.3) x10^3/uL Absolute Nucleated RBC 0.00 (0.00-0.01) x10^3u/L Lymphocytes % 28.2 (24.0-44.0) % Monocytes % 5.3 (0.0-12.0) % Eosinophils % 0.0 (0.00-5.0) % Basophils % 0.0 (0.0-0.4) % Absolute Granulocytes 1.37 L (1.4-6.9) x10^3/uL Basophils # 0 (0-0.4) x10^3/uL PT (9.4-12.5) SECONDS INR (0.8-3.0) Sodium (137-145) mmol/L Potassium (3.5-5.1) mmol/L Chloride (98-107) mmol/L Carbon Dioxide (22-30) mmol/L Anion Gap (5-15) MEQ/L BUN (7-17) mg/dL Creatinine (0.52-1.04) mg/dL Estimated GFR ML/MIN Glucose (74-106) mg/dL Calcium (8.4-10.2) mg/dL Magnesium (1.6-2.3) mg/dL Total Bilirubin (0.2-1.3) mg/dL AST (14-36) U/L ALT (0-35) U/L Alkaline Phosphatase (38-126) U/L Troponin I < 0.012 (0.000-0.034) ng/mL NT-Pro-B Natriuret Pep (<300) pg/mL Serum Total Protein (6.3-8.2) g/dL Albumin (3.5-5.0) g/dL Thyroxine (T4) (5.53-10.96) ug/dL TSH 3rd Generation (0.47-4.68) mIU/L Urine Sodium 8 L (30-90) mmol/L Urine Potassium 12.5 H (0.1-0.7) mmol/L Influenza Type A Ag (NEGATIVE) Influenza Type B Ag (NEGATIVE) RSV (PCR) (NEGATIVE) SARS-CoV-2 (PCR) (NEGATIVE) 10/31/23 10/31/23 10/31/23 Range/Units 03:30 03:30 03:30 WBC (4.0-10.5) x10^3/uL RBC (4.1-5.4) x10^6/uL Hgb (12.0-16.0) g/dL Hct (35-47) % MCV (78-100) fL MCH (26-32) pg MCHC (32-36) g/dL RDW (11.5-14.0) % Plt Count (150-450) x10^3/uL MPV (7.5-11.0) fL Gran % (36.0-66.0) % Immature Gran % (Auto) (0.00-0.4) % Nucleat RBC Rel Count (0.00-0.1) % Eos # (Auto) (0-0.5) x10^3/uL Immature Gran # (Auto) (0.00-0.03) x10^3u/L Absolute Lymphs (auto) (1.0-4.6) x10^3/uL Absolute Monos (auto) (0.0-1.3) x10^3/uL Absolute Nucleated RBC (0.00-0.01) x10^3u/L Lymphocytes % (24.0-44.0) % Monocytes % (0.0-12.0) % Eosinophils % (0.00-5.0) % Basophils % (0.0-0.4) % Absolute Granulocytes (1.4-6.9) x10^3/uL Basophils # (0-0.4) x10^3/uL PT (9.4-12.5) SECONDS INR (0.8-3.0) Sodium 123 L (137-145) mmol/L Potassium 3.4 L (3.5-5.1) mmol/L Chloride 90 L (98-107) mmol/L Carbon Dioxide 28 (22-30) mmol/L Anion Gap 8.4 (5-15) MEQ/L BUN 7 (7-17) mg/dL Creatinine 0.33 L (0.52-1.04) mg/dL Estimated GFR 111.5 ML/MIN Glucose 152 H (74-106) mg/dL Calcium 8.5 (8.4-10.2) mg/dL Magnesium (1.6-2.3) mg/dL Total Bilirubin 0.40 (0.2-1.3) mg/dL AST 38 H (14-36) U/L ALT 19 (0-35) U/L Alkaline Phosphatase 65 (38-126) U/L Troponin I (0.000-0.034) ng/mL NT-Pro-B Natriuret Pep 1010 (<300) pg/mL Serum Total Protein 6.0 L (6.3-8.2) g/dL Albumin 3.4 L (3.5-5.0) g/dL Thyroxine (T4) 11.3 H (5.53-10.96) ug/dL TSH 3rd Generation 0.043 L (0.47-4.68) mIU/L Urine Sodium (30-90) mmol/L Urine Potassium (0.1-0.7) mmol/L Influenza Type A Ag (NEGATIVE) Influenza Type B Ag (NEGATIVE) RSV (PCR) (NEGATIVE) SARS-CoV-2 (PCR) (NEGATIVE) Radiology Exams: Radiology Procedures Category Date Time Status CHEST 1 VIEW (PORTABLE) Stat Exams 10/30/23 15:39 Completed <CHAR SCHMID - Last Filed: 10/31/23 11:59> Vital Signs: Vital Signs - 24 hr Temp Pulse Resp BP Pulse Ox 10/31/23 20:00 20 10/31/23 19:57 63 20 96 10/31/23 19:36 98.4 F 67 19 131/59 94 L 10/31/23 16:00 18 10/31/23 15:27 73 18 94 L 10/31/23 12:00 18 10/31/23 11:51 97.6 F 60 18 142/64 94 L 10/31/23 11:01 72 20 95 10/31/23 08:00 18 10/31/23 07:15 76 22 92 L 10/31/23 07:10 98.0 F 74 20 113/58 92 L 10/31/23 04:00 97.9 F 58 L 18 144/83 92 L 10/30/23 23:57 16 10/30/23 23:51 98.3 F 69 22 139/60 93 L 10/30/23 21:30 76 18 92 L Pain Assessment - Last Documented Pain Intensity 0 Intake and Output: Intake & Output 10/29/23 10/30/23 10/31/23 11/01/23 11:59 11:59 11:59 11:59 Intake Total 360 600 Output Total 451 Balance -91 600 Weight 59 kg Lab Results: Lab Results-Last 24 Hours 10/30/23 10/30/23 10/31/23 Range/Units 03:30 19:50 03:30 WBC 2.1 L (4.0-10.5) x10^3/uL RBC 4.00 L (4.1-5.4) x10^6/uL Hgb 11.6 L (12.0-16.0) g/dL Hct 34.2 L (35-47) % MCV 85.5 (78-100) fL MCH 29.0 (26-32) pg MCHC 33.9 (32-36) g/dL RDW 13.1 (11.5-14.0) % Plt Count 172 (150-450) x10^3/uL MPV 9.9 (7.5-11.0) fL Gran % 66.5 H (36.0-66.0) % Immature Gran % (Auto) 0.0 (0.00-0.4) % Nucleat RBC Rel Count 0.0 (0.00-0.1) % Eos # (Auto) 0 (0-0.5) x10^3/uL Immature Gran # (Auto) 0.00 (0.00-0.03) x10^3u/L Absolute Lymphs (auto) 0.58 L (1.0-4.6) x10^3/uL Absolute Monos (auto) 0.11 (0.0-1.3) x10^3/uL Absolute Nucleated RBC 0.00 (0.00-0.01) x10^3u/L Lymphocytes % 28.2 (24.0-44.0) % Monocytes % 5.3 (0.0-12.0) % Eosinophils % 0.0 (0.00-5.0) % Basophils % 0.0 (0.0-0.4) % Absolute Granulocytes 1.37 L (1.4-6.9) x10^3/uL Basophils # 0 (0-0.4) x10^3/uL Sodium (137-145) mmol/L Potassium (3.5-5.1) mmol/L Chloride (98-107) mmol/L Carbon Dioxide (22-30) mmol/L Anion Gap (5-15) MEQ/L BUN (7-17) mg/dL Creatinine (0.52-1.04) mg/dL Estimated GFR ML/MIN Glucose (74-106) mg/dL Calcium (8.4-10.2) mg/dL Total Bilirubin (0.2-1.3) mg/dL AST (14-36) U/L ALT (0-35) U/L Alkaline Phosphatase (38-126) U/L Troponin I < 0.012 < 0.012 (0.000-0.034) ng/mL NT-Pro-B Natriuret Pep (<300) pg/mL Serum Total Protein (6.3-8.2) g/dL Albumin (3.5-5.0) g/dL Thyroxine (T4) (5.53-10.96) ug/dL TSH 3rd Generation (0.47-4.68) mIU/L 10/31/23 10/31/23 10/31/23 Range/Units 03:30 03:30 03:30 WBC (4.0-10.5) x10^3/uL RBC (4.1-5.4) x10^6/uL Hgb (12.0-16.0) g/dL Hct (35-47) % MCV (78-100) fL MCH (26-32) pg MCHC (32-36) g/dL RDW (11.5-14.0) % Plt Count (150-450) x10^3/uL MPV (7.5-11.0) fL Gran % (36.0-66.0) % Immature Gran % (Auto) (0.00-0.4) % Nucleat RBC Rel Count (0.00-0.1) % Eos # (Auto) (0-0.5) x10^3/uL Immature Gran # (Auto) (0.00-0.03) x10^3u/L Absolute Lymphs (auto) (1.0-4.6) x10^3/uL Absolute Monos (auto) (0.0-1.3) x10^3/uL Absolute Nucleated RBC (0.00-0.01) x10^3u/L Lymphocytes % (24.0-44.0) % Monocytes % (0.0-12.0) % Eosinophils % (0.00-5.0) % Basophils % (0.0-0.4) % Absolute Granulocytes (1.4-6.9) x10^3/uL Basophils # (0-0.4) x10^3/uL Sodium 123 L (137-145) mmol/L Potassium 3.4 L (3.5-5.1) mmol/L Chloride 90 L (98-107) mmol/L Carbon Dioxide 28 (22-30) mmol/L Anion Gap 8.4 (5-15) MEQ/L BUN 7 (7-17) mg/dL Creatinine 0.33 L (0.52-1.04) mg/dL Estimated GFR 111.5 ML/MIN Glucose 152 H (74-106) mg/dL Calcium 8.5 (8.4-10.2) mg/dL Total Bilirubin 0.40 (0.2-1.3) mg/dL AST 38 H (14-36) U/L ALT 19 (0-35) U/L Alkaline Phosphatase 65 (38-126) U/L Troponin I (0.000-0.034) ng/mL NT-Pro-B Natriuret Pep 1010 (<300) pg/mL Serum Total Protein 6.0 L (6.3-8.2) g/dL Albumin 3.4 L (3.5-5.0) g/dL Thyroxine (T4) 11.3 H (5.53-10.96) ug/dL TSH 3rd Generation 0.043 L (0.47-4.68) mIU/L Radiology Exams: Radiology Procedures Category Date Time Status CHEST 1 VIEW (PORTABLE) Stat Exams 10/30/23 15:39 Completed <JUAN JUAREZ - Last Filed: 10/31/23 20:44> Assessment/Plan (1) Influenza A H1N1 infection Current Visit: Yes Status: Acute Assessment & Plan: - + test in ER 10/30/23 - Has not been eating and drinking well [employer] - hypoxia, weakness - tamiflu - IVF - Mucinex - cough drops per request of pt - 2lNC- BL RA - IS Code(s): J10.1 - FLU DUE TO OTH IDENT INFLUENZA VIRUS W OTH RESP MANIFEST (2) Hyponatremia Current Visit: Yes Status: Acute Assessment & Plan: - 2:2 FLU A- has not been eating and drinking well - IVF - labs improving- Na+ 123, on admission was 118 - unable to consult cardiology as they are out- no current cardiac concerns - no lethargy, mental status changes,or seizures Code(s): E87.1 - HYPO-OSMOLALITY AND HYPONATREMIA (3) Hypokalemia Current Visit: Yes Status: Acute Assessment & Plan: - K+ 3.4- replaced- trend Code(s): E87.6 - HYPOKALEMIA (4) Hypoxia Current Visit: Yes Status: Acute Assessment & Plan: - requiring 2LNC - O2 at 92% - does not wear Oxygen at home - ty pickard, IS - RT eval and treat 10/31 - RA - 2LNC at [facility] BL Code(s): R09.02 - HYPOXEMIA (5) Weakness Current Visit: Yes Status: Acute Assessment & Plan: - bed rest for now until labs and oxygen improve. - Will order PT eval if still here Thursday VTE: Lovenox Next of Kin: Clemente Yanes [phone] D/C plan: 2-3 days Code status: full Code(s): R53.1 - WEAKNESS <CHAR SCHMID - Last Filed: 10/31/23 11:59> JENA Encounter - JENA Encounter Attestation JENA Encounter Attestation: "ZULY Tee andhavediscussed pertinent aspects of their care with Char Perrin agree with the history, physical exam (any modifications based on my personal exam will be noted below), assessment, and plan as outlined in original note. Please see immediately below for my summary of findings and additional assessment and plan along with any meaningful corrections/explanations to the Subjective/Objective portions of the JENA note will be noted." My portion of the encounter took place via telemedicine. -She was feeling better today and is now on room air. Hyponatremia improving at 123 today. Discussed with patient that she will need to stay at least another day to ensure upward trend of sodium. <JUAN JUAREZ - Last Filed: 10/31/23 20:44>
[2023-10-31] MEDS ORDERED: Adalat CC 30 MG TABLET PO SCH (10:00)
[2023-10-31] MEDS ORDERED: ECOTRIN 81 MG PO SCH (10:00)
[2023-10-31] MEDS ORDERED: ZOCOR 20MG PO SCH (10:00)
[2023-10-31] MEDS: Tamiflu 75MG Capsule PO SCH ×2 (12:24→21:36)
[2023-10-31] MEDS: Mucinex 600MG ER Tabs PO SCH ×2 (12:24→21:36)
[2023-10-31] MEDS ORDERED: ENOXAPARIN SODIUM SQ SCH (13:00)
[2023-11-01 03:56] VITALS: TEMP 97.6
[2023-11-01] MEDS ORDERED: PROVENTIL 2.5 MG/3 ML NEB IH ONE (04:06)
[2023-11-01] MEDS ORDERED: PROVENTIL 2.5 MG/3 ML NEB IH PRN (04:19)
[2023-11-01 06:09] LABS: Hematocrit 33.4 % (35-47); Mean Cell Volume 89.1 fL (78-100); Mean Corpuscular Hemoglobin 29.3 pg (26-32); Mean Corpuscular Hgb Concent. 32.9 g/dL (32-36); Mean Platelet Volume 10.2 fL (7.5-11.0); Platelet Count 187 x10^3/uL (150-450); Red Blood Count 3.75 x10^6/uL (4.1-5.4); Red Cell Distribution Width 13.8 % (11.5-14.0); White Blood Count 5.9 x10^3/uL (4.0-10.5)
[2023-11-01 06:29] LABS: ALBUMIN 3.4 g/dL (3.5-5.0); ANION GAP 9.8 MEQ/L (5-15); BILIRUBIN,TOTAL 0.3 mg/dL (0.2-1.3); Calcium 8.4 mg/dL (8.4-10.2); Creatinine 1 0.34 mg/dL (0.52-1.04); EST GLOMERULAR FILTRATION RATE 110.7 ML/MIN; Potassium 3.8 mmol/L (3.5-5.1)
[2023-11-01] MEDS ORDERED: PATIENT OWN MEDICATION IH SCH (07:00)
[2023-11-01] MEDS: DUONEB 0.5-3 MG/3 ml Neb IH SCH (07:12)
[2023-11-01 07:44] VITALS: BP 160/70; PULSE 64; RESP 16; O2SAT 93
[2023-11-01] MEDS: SYNTHROID 75 MCG PO SCH (07:55)
--- NOTE | 2023-11-01 08:49 | PCM.DS ---
Discharge Summary Date of Admission: 10/30/23 19:17 Date of Discharge: 11/01/23 Admitting Physician: MAIRA AGARWAL MD Consults: Consults on Case 10/30/23 21:13 Diet Consult [Nutritional Consult] ROUTINE Primary Care Provider: NEL COWART <CHAR SCHMID - Last Filed: 11/01/23 09:01> Date of Admission: 10/30/23 19:17 Date of Discharge: 11/01/23 Admitting Physician: MAIRA AGARWAL MD Consults: Consults on Case 10/30/23 21:13 Diet Consult [Nutritional Consult] ROUTINE Primary Care Provider: NEL COWART <JUAN JUAREZ - Last Filed: 11/01/23 17:29> Allergies <CHAR SCHMID - Last Filed: 11/01/23 09:01> <JUAN JUAREZ - Last Filed: 11/01/23 17:29> Allergies propoxyphene napsylate [From Darvocet-N 100] Allergy (Mild, Verified 10/30/23 15:04) Hospital Summary - Hospital Course Hospital Course: 10/31/23 Ms. Yanes is a 68 year old female with a past medical history significant for hypertension, hyperlipidemia, and hypothyroidism. She presented to the ER last night with complaints of vague shortness of breath associated with non productive cough over the past 3-4 days. Upon arrival, she was found to be positive for influenza and initial labs were notable for a sodium of 118. She was started on NS IVFs, given Solumedrol and admitted for further work up. She was found to be positive for flu A and hypoxic requiring 2LNC to keep O2 92 %. She was started on tamiflu. She does not wear home O2. Hyponatremia has slowly improved per labs this AM. She is coughing up thick yellow sputum today, will add Mucinex. Chest XR does not show pneumonia and she does not have an elevated WBC. Will continue steroids and duonebs. K+ low this am and replaced. She deneis CP, SOB, Abd. pain, N/V/D. 11/01/23 Pt resting in bed. Oxygen level has improved. She is now 94% on 2 LNC. She does not wear home oxygen. RT evaluated and she does need home O2 use. Sodium has improved. She continues to have some wheezing. Will d/c with breathing txs, steroids, and tamiflu. She deneis CP, SOB, abd. pain, N/V/D. - Vitals & Intake/Output Vital Signs: Vital Signs Temperature 97.6 F 11/01/23 07:43 Pulse Rate 64 11/01/23 07:43 Respiratory Rate 16 11/01/23 07:43 Blood Pressure 160/70 11/01/23 07:43 O2 Sat by Pulse Oximetry 93 L 11/01/23 07:43 Intake & Output: Intake & Output 10/29/23 10/30/23 10/31/23 11/01/23 11:59 11:59 11:59 11:59 Intake Total 360 600 Output Total 451 Balance -91 600 Weight 59 kg - Lab Result Diagrams: 11/01/23 05:45 11/01/23 05:45 Lab Results-Last 24 Hrs: Lab Results-Last 24 Hours 11/01/23 11/01/23 11/01/23 Range/Units 04:02 05:45 05:45 WBC 5.9 (4.0-10.5) x10^3/uL RBC 3.75 L (4.1-5.4) x10^6/uL Hgb 11.0 L (12.0-16.0) g/dL Hct 33.4 L (35-47) % MCV 89.1 (78-100) fL MCH 29.3 (26-32) pg MCHC 32.9 (32-36) g/dL RDW 13.8 (11.5-14.0) % Plt Count 187 (150-450) x10^3/uL MPV 10.2 (7.5-11.0) fL Sodium 132 L D (137-145) mmol/L Potassium 3.8 (3.5-5.1) mmol/L Chloride 99 (98-107) mmol/L Carbon Dioxide 27 (22-30) mmol/L Anion Gap 9.8 (5-15) MEQ/L BUN 8 (7-17) mg/dL Creatinine 0.34 L (0.52-1.04) mg/dL Estimated GFR 110.7 ML/MIN Glucose 141 H (74-106) mg/dL POC Glucometer 148 H (74 to 106) mg/dL Calcium 8.4 (8.4-10.2) mg/dL Total Bilirubin 0.30 (0.2-1.3) mg/dL AST 35 (14-36) U/L ALT 21 (0-35) U/L Alkaline Phosphatase 64 (38-126) U/L Serum Total Protein 6.0 L (6.3-8.2) g/dL Albumin 3.4 L (3.5-5.0) g/dL Micro Results-Entire Visit: Microbiology 10/30/23 16:00 Blood Culture - Preliminary Blood 10/30/23 15:10 Blood Culture - Preliminary Blood - Radiology Exams Ordered Rad Exams-Entire Visit: Radiology Procedures Category Date Time Status CHEST 1 VIEW (PORTABLE) Stat Exams 10/30/23 15:39 Completed - Procedures and Test Procedures and Tests throughout Hospitalization: Therapy Orders & Screens 10/30/23 15:07 Respiratory Therapy Assessment DAILY Comment: 10/30/23 19:25 EKG REPEAT IN AM Comment: Oxygen Nasal Cannula 2 lpm Comment: Respiratory Therapy Consult ONCE Comment: Reason For Exam: 10/30/23 19:55 ST Screen per Nursing Assess ONCE Comment: Protocol Order Physician Instructions: Greater than [address] Admission Screening Reason For Exam: Triggered on Admission Diagnosis: hyponatremia, influenza A, hypoxia, weakness CVA/Dyshpagia/Aphasia: No Cognitive Deficits: No Dehydration/Nutrition Deficit: Yes Reflux: No Oral-Motor Difficulties: No Pneumonia: No Alf Resident: No Total Points: 5 10/31/23 09:35 Incentive Spirometry TID Comment: Diagnosis: hyponatremia, influenza A, hypoxia, weakness 11/01/23 08:36 RT 6 Minute Walk ROUTINE Comment: eval for home o2 Diagnosis: hyponatremia, influenza A, hypoxia, weakness <CHAR SCHMID - Last Filed: 11/01/23 09:01> - Vitals & Intake/Output Vital Signs: Vital Signs Temperature 97.6 F 11/01/23 07:43 Pulse Rate 64 11/01/23 07:43 Respiratory Rate 16 11/01/23 08:00 Blood Pressure 160/70 11/01/23 07:43 O2 Sat by Pulse Oximetry 93 L 11/01/23 07:43 Intake & Output: Intake & Output 12/10/31/23 11/01/23 11/02/23 11:59 11:59 11:59 11:59 Intake Total 360 600 Output Total 451 Balance -91 600 Weight 59 kg - Lab Result Diagrams: 11/01/23 05:45 11/01/23 05:45 Lab Results-Last 24 Hrs: Lab Results-Last 24 Hours 11/01/23 11/01/23 11/01/23 Range/Units 04:02 05:45 05:45 WBC 5.9 (4.0-10.5) x10^3/uL RBC 3.75 L (4.1-5.4) x10^6/uL Hgb 11.0 L (12.0-16.0) g/dL Hct 33.4 L (35-47) % MCV 89.1 (78-100) fL MCH 29.3 (26-32) pg MCHC 32.9 (32-36) g/dL RDW 13.8 (11.5-14.0) % Plt Count 187 (150-450) x10^3/uL MPV 10.2 (7.5-11.0) fL Sodium 132 L D (137-145) mmol/L Potassium 3.8 (3.5-5.1) mmol/L Chloride 99 (98-107) mmol/L Carbon Dioxide 27 (22-30) mmol/L Anion Gap 9.8 (5-15) MEQ/L BUN 8 (7-17) mg/dL Creatinine 0.34 L (0.52-1.04) mg/dL Estimated GFR 110.7 ML/MIN Glucose 141 H (74-106) mg/dL POC Glucometer 148 H (74 to 106) mg/dL Calcium 8.4 (8.4-10.2) mg/dL Total Bilirubin 0.30 (0.2-1.3) mg/dL AST 35 (14-36) U/L ALT 21 (0-35) U/L Alkaline Phosphatase 64 (38-126) U/L Serum Total Protein 6.0 L (6.3-8.2) g/dL Albumin 3.4 L (3.5-5.0) g/dL Micro Results-Entire Visit: Microbiology 10/30/23 16:00 Blood Culture - Preliminary Blood 10/30/23 15:10 Blood Culture - Preliminary Blood - Procedures and Test Procedures and Tests throughout Hospitalization: Therapy Orders & Screens 10/30/23 15:07 Respiratory Therapy Assessment DAILY Comment: 10/30/23 19:25 EKG REPEAT IN AM Comment: Oxygen Nasal Cannula 2 lpm Comment: Respiratory Therapy Consult ONCE Comment: Reason For Exam: 10/30/23 19:55 ST Screen per Nursing Assess ONCE Comment: Protocol Order Physician Instructions: Greater than [address] Admission Screening Reason For Exam: Triggered on Admission Diagnosis: hyponatremia, influenza A, hypoxia, weakness CVA/Dyshpagia/Aphasia: No Cognitive Deficits: No Dehydration/Nutrition Deficit: Yes Reflux: No Oral-Motor Difficulties: No Pneumonia: No Alf Resident: No Total Points: 5 10/31/23 09:35 Incentive Spirometry TID Comment: Diagnosis: hyponatremia, influenza A, hypoxia, weakness 11/01/23 08:36 RT 6 Minute Walk ROUTINE Comment: eval for home o2 Diagnosis: hyponatremia, influenza A, hypoxia, weakness <JUAN JUAREZ - Last Filed: 11/01/23 17:29> Discharge Exam General Appearance: no apparent distress, alert Neurologic Exam: alert, oriented x 3, cooperative, normal mood/affect, nml cerebellar function, sensation nml, No motor deficits Eye Exam: PERRL, EOMI, eyes nml inspection Ears, Nose, Throat Exam: normal ENT inspection, pharynx normal, moist mucous membranes Neck Exam: normal inspection, non-tender, supple, full range of motion Respiratory Exam: wheezing, No respiratory distress Cardiovascular Exam: regular rate/rhythm, normal heart sounds Gastrointestinal/Abdomen Exam: soft, No tenderness, No mass Pelvic Exam: deferred Rectal Exam: deferred Back Exam: normal inspection, normal range of motion, No CVA tenderness, No vertebral tenderness Extremity Exam: normal inspection, normal range of motion Skin Exam: normal color, warm, dry <CHAR SCHMID - Last Filed: 11/01/23 09:01> Final Diagnosis/Problem List - Final Discharge Diagnosis/Problem (1) Influenza A H1N1 infection Status: Acute Code(s): J10.1 - FLU DUE TO OTH IDENT INFLUENZA VIRUS W OTH RESP MANIFEST (2) Hyponatremia Status: Acute Code(s): E87.1 - HYPO-OSMOLALITY AND HYPONATREMIA (3) Hypokalemia Status: Acute Code(s): E87.6 - HYPOKALEMIA (4) Hypoxia Status: Acute Code(s): R09.02 - HYPOXEMIA (5) Weakness Status: Acute Assessment & Plan: (1) Influenza A H1N1 infection Current Visit: Yes Status: Acute Assessment & Plan: - + test in ER 10/30/23 - Has not been eating and drinking well [employer] - hypoxia, weakness - tamiflu - IVF - Mucinex - cough drops per request of pt - 2lNC- BL RA - IS Code(s): J10.1 - FLU DUE TO OTH IDENT INFLUENZA VIRUS W OTH RESP MANIFEST (2) Hyponatremia Current Visit: Yes Status: Acute Assessment & Plan: - 2:2 FLU A- has not been eating and drinking well - IVF - labs improving- Na+ 123, on admission was 118 - unable to consult cardiology as they are out- no current cardiac concerns - no lethargy, mental status changes,or seizures 11/01 - Na+ 132- mild - F/U OP with PCP for labs to be rechecked Code(s): E87.1 - HYPO-OSMOLALITY AND HYPONATREMIA (3) Hypokalemia Current Visit: Yes Status: Acute Assessment & Plan: - K+ 3.4- replaced- trend 11/01 - resolved Code(s): E87.6 - HYPOKALEMIA (4) Hypoxia Current Visit: Yes Status: Acute Assessment & Plan: - requiring 2LNC - O2 at 92% - does not wear Oxygen at home - ty pickard IS - RT eval and treat 10/31 - RA - 2LNC at [facility] 11/01 - 6 minute walk test with RT- qualifies for home O2, oxygen drops to 89% on RA. - RT setting up home O2 Code(s): R09.02 - HYPOXEMIA (5) Weakness Current Visit: Yes Status: Acute Assessment & Plan: - bed rest for now until labs and oxygen improve. 11/01 - improved and able to walk in halls Code(s): R53.1 - WEAKNESS <CHAR SCHMID - Last Filed: 11/01/23 09:01> - Discharge Discharge Date: 11/01/23 <CHAR SCHMID - Last Filed: 11/01/23 09:01> <JUAN JUAREZ - Last Filed: 11/01/23 17:29> - Discharge Disposition: Home, Self-Care Condition: Stable Prescriptions: New Oseltamivir 75 mg [Tamiflu 75MG Capsule] 75 mg PO BID 4 Days #8 cap Prednisone 20 mg [Deltasone 20 mg] 20 mg PO BID 5 Days #10 tablet Ipratropium/Albuterol Sulfate [Iprat-Albut 0.5-3(2.5) mg/3 ml] 3 ml IH QID 30 Days #120 amp Continue Levothyroxine Sodium 75 Mcg [Synthroid 75 Mcg] 1 tab PO DAILY Evolocumab [Repatha Sureclick] 140 mg SQ 14 NIFEdipine [Nifedipine ER] 1 tab PO DAILY Atorvastatin Calcium [Lipitor 40Mg] 1 tab PO DAILY Albuterol Sulfate Mdi [ALBUTEROL/Proair Hfa MDI] 2 puff PO BID PRN PRN Reason: Shortness Of Breath Gabapentin [Neurontin ] 1 cap PO BID Fluticasone/Vilanterol [Breo Ellipta 100-25 Mcg Inhalr] 1 puff PO DAILY Aspirin EC 81 mg [Ecotrin 81 mg] 1 tab PO DAILY Carvedilol 12.5 mg [Coreg 12.5 mg] 12.5 mg PO BID Instructions: Flu, Adult (DC) Additional Instructions: Can use over the counter mucinex and cough drops if needed. Follow up with PCP next week. CALL ALETHA FROM [facility] AT [phone] WHEN YOU GET HOME TO HAVE YOUR O2 DELIVERED TO YOUR HOUSE Follow up with: NEL COWART NP [Primary Care Provider] - JENA Encounter - JENA Encounter Attestation JENA Encounter Attestation: "ZULY Tee andcorrieiscussed pertinent aspects of their care with Char Low-Michelle agree with the history, physical exam (any modifications based on my personal exam will be noted below), assessment, and plan as outlined in original note. Please see immediately below for my summary of findings and additional assessment and plan along with any meaningful corrections/explanations to the Subjective/Objective portions of the JENA note will be noted." My portion of the encounter took place via telemedicine. <JUAN JUAREZ - Last Filed: 11/01/23 17:29>
== END 2023-11-01 10:03 | disposition home or self-care (01) | DRG 194 ==
LOC: ED 14:50 → MED SURG 19:17
PROVIDERS: ADMIT Internal Medicine Nephrology; ATTEND Internal Medicine Nephrology
DX: J10.1 Influenza due to other identified influenza virus with other respiratory manifestations (principal); E87.1 Hypo-osmolality and hyponatremia; E87.6 Hypokalemia; R09.02 Hypoxemia; R53.1 Weakness; I10 Essential (primary) hypertension; E78.5 Hyperlipidemia, unspecified; E03.9 Hypothyroidism, unspecified; I25.2 Old myocardial infarction; Z79.899 Other long term (current) drug therapy; Z20.828 Contact with and (suspected) exposure to other viral communicable diseases; Z95.0 Presence of cardiac pacemaker
CPT/HCPCS: 0241U; 36000; 36415; 71045; 80053; 82947; 83735; 83880; 83935; 84133; 84300; 84436; 84443; 84484; 85025; 85027; 85610; 87040; 93005; 94640; 94760; 96374; 99285; J1650; J2920; J2930; J7609; Q3014; A9270-GY